=== PATIENT | female | born 1945 | race Caucasian/White ===

== ENCOUNTER → 2016-08-02 | Outpatient (REF) | payer MEDICARE ==
[2016-08-02 12:51] LABS: ALBUMIN 3.8 GM/DL (3.2-5.2); ALBUMIN/GLOBULIN RATIO 1.31 (1.00-1.93); ALKALINE PHOSPHATASE 71 U/L (45-117); ALT/SGPT 20 U/L (12-78); ANION GAP 5 MEQ/L (8-16); AST/SGOT 18 U/L (15-37); BILIRUBIN,TOTAL 0.5 MG/DL (0.2-1.0); BLOOD UREA NITROGEN 18 MG/DL (7-18); CALCIUM LEVEL 9.6 MG/DL (8.8-10.2); CARBON DIOXIDE LEVEL 28 MEQ/L (21-32); CHLORIDE LEVEL 105 MEQ/L (98-107); CHOLESTEROL LEVEL 204 MG/DL (<200); GLOMERULAR FILTRATION RATE > 60.0 (>39); GLUCOSE, FASTING 92 MG/DL (83-110); POTASSIUM SERUM 3.9 MEQ/L (3.5-5.1); SODIUM LEVEL 138 MEQ/L (136-145); TOTAL PROTEIN 6.7 GM/DL (6.4-8.2); TRIGLYCERIDES LEVEL 72 MG/DL (<150)
[2016-08-02 12:56] LABS: MEAN CORPUSCULAR HEMOGLOBIN 32.4 pg (27.0-33.0); MEAN CORPUSCULAR HGB CONC 32.5 g/dl (32.0-36.5); MEAN CORPUSCULAR VOLUME 99.7 fl (80.0-96.0); WHITE BLOOD COUNT 5.5 K/mm3 (4.0-10.0)
== END ==
LOC: M SFHCPLAZ 07:56
PROVIDERS: ATTEND Internal Medicine
DX: D69.6 Thrombocytopenia, unspecified (principal); I25.10 Atherosclerotic heart disease of native coronary artery without angina pectoris

== ENCOUNTER → 2017-08-07 | Outpatient (REF) | payer MEDICARE ==
[2017-08-07 10:45] LABS: HEMATOCRIT 40.5 % (36.0-47.0); MEAN CORPUSCULAR HEMOGLOBIN 31.1 pg (27.0-33.0); MEAN CORPUSCULAR HGB CONC 32.1 g/dl (32.0-36.5); MEAN CORPUSCULAR VOLUME 96.9 fl (80.0-96.0); RED BLOOD COUNT 4.18 10^6/uL (4.00-5.40); RED CELL DISTRIBUTION WIDTH 13.2 % (11.5-14.5); WHITE BLOOD COUNT 5.4 10^3/uL (4.0-10.0)
[2017-08-07 11:23] LABS: PLATELET COUNT, AUTOMATED 79 10^3/uL (150-450)
[2017-08-07 11:26] LABS: IMMATURE PLATELET FRACTION % 32.1 % (0.0-9.6)
[2017-08-07 11:36] LABS: ALBUMIN 3.7 GM/DL (3.2-5.2); ALBUMIN/GLOBULIN RATIO 1.19 (1.00-1.93); ALKALINE PHOSPHATASE 72 U/L (45-117); ALT/SGPT 19 U/L (12-78); ANION GAP 8 MEQ/L (8-16); AST/SGOT 20 U/L (7-37); BILIRUBIN,TOTAL 0.4 MG/DL (0.2-1.0); BLOOD UREA NITROGEN 18 MG/DL (7-18); CALCIUM LEVEL 9.1 MG/DL (8.8-10.2); CARBON DIOXIDE LEVEL 28 MEQ/L (21-32); CHLORIDE LEVEL 106 MEQ/L (98-107); CHOLESTEROL LEVEL 183 MG/DL (<200); CHOLESTEROL RISK RATIO 2.859 (<5); CREATININE FOR GFR 0.72 MG/DL (0.55-1.30); GLOMERULAR FILTRATION RATE > 60.0 (>39); GLUCOSE, FASTING 95 MG/DL (70-100); HDL CHOLESTEROL 64 MG/DL (>40); NON-HDL-C 119 MG/DL; SODIUM LEVEL 142 MEQ/L (136-145); TOTAL PROTEIN 6.8 GM/DL (6.4-8.2); TRIGLYCERIDES LEVEL 70 MG/DL (<150)
== END ==
LOC: M SFHCPLAZ 07:49
DX: Z00.00 Encounter for general adult medical examination without abnormal findings (principal); I25.10 Atherosclerotic heart disease of native coronary artery without angina pectoris; D69.6 Thrombocytopenia, unspecified; E78.00 Pure hypercholesterolemia, unspecified
CPT/HCPCS: 80053

== ENCOUNTER → 2018-09-11 | Outpatient (REF) | payer MEDICARE ==
[2018-09-11 12:13] LABS: HEMATOCRIT 39.2 % (36.0-47.0); HEMOGLOBIN 12.6 g/dl (12.0-15.5); MEAN CORPUSCULAR HEMOGLOBIN 31.4 pg (27.0-33.0); MEAN CORPUSCULAR HGB CONC 32.1 g/dl (32.0-36.5); MEAN CORPUSCULAR VOLUME 97.8 fl (80.0-96.0); RED BLOOD COUNT 4.01 10^6/uL (4.00-5.40); WHITE BLOOD COUNT 5.7 10^3/uL (4.0-10.0)
[2018-09-11 12:35] LABS: ALBUMIN 3.7 GM/DL (3.2-5.2); ALT/SGPT 17 U/L (12-78); BILIRUBIN,TOTAL 0.5 MG/DL (0.2-1.0); BLOOD UREA NITROGEN 18 MG/DL (7-18); CALCIUM LEVEL 9.6 MG/DL (8.8-10.2); CARBON DIOXIDE LEVEL 26 MEQ/L (21-32); CHLORIDE LEVEL 109 MEQ/L (98-107); CHOLESTEROL LEVEL 187 MG/DL (<200); CHOLESTEROL RISK RATIO 2.833 (<5); CREATININE FOR GFR 0.69 MG/DL (0.55-1.30); FOLATE 23.1 NG/ML; GLOMERULAR FILTRATION RATE > 60.0 (>39); GLUCOSE, FASTING 85 MG/DL (70-100); HDL CHOLESTEROL 66 MG/DL (>40); LDL CHOLESTEROL 108 MG/DL (<100); NON-HDL-C 121 MG/DL; SODIUM LEVEL 142 MEQ/L (136-145); TOTAL PROTEIN 6.6 GM/DL (6.4-8.2); TRIGLYCERIDES LEVEL 67 MG/DL (<150); VITAMIN B12 LEVEL 390 PG/ML
[2018-09-11 12:45] LABS: PLATELET COUNT, AUTOMATED 63 10^3/uL (150-450)
== END ==
LOC: M LABDRAWP 09:04
PROVIDERS: ATTEND Internal Medicine
DX: D69.6 Thrombocytopenia, unspecified (principal); I25.10 Atherosclerotic heart disease of native coronary artery without angina pectoris; E78.00 Pure hypercholesterolemia, unspecified

== ENCOUNTER → 2019-10-07 | Outpatient (REF) | payer MEDICARE ==
[~2019-10-07] MED LIST: CALC600T60 PO; COQ1200C3 PO; CRAN400C PO; IPRA0.00 NEB; LUTE2000 PO; REDCAP4 PO; TARTCAP PO; TRAM50TA2 PO; VITA250T4 PO; XARE10TA PO
[2019-11-24 21:57] LABS: BASO % 0.4 % (0.0-1.0); EOS % 0.3 % (0.0-3.0); HEMATOCRIT 41.4 % (36.0-47.0); HEMOGLOBIN 12.8 g/dl (12.0-15.5); LYMPH % 11.3 % (24.0-44.0); MEAN CORPUSCULAR HEMOGLOBIN 28.4 pg (27.0-33.0); MEAN CORPUSCULAR HGB CONC 30.9 g/dl (32.0-36.5); MEAN CORPUSCULAR VOLUME 91.8 fl (80.0-96.0); MONO # 0.7 10^3/uL (0.0-0.8); MONO % 7.7 % (0.0-5.0); NEUTROPHILS # 7.3 10^3/uL (1.5-8.5); PLATELET COUNT, AUTOMATED 182 10^3/uL (150-450); RED BLOOD COUNT 4.51 10^6/uL (4.00-5.40); WHITE BLOOD COUNT 9.1 10^3/uL (4.0-10.0)
[2019-12-01 03:47] LABS: ALBUMIN 3.4 GM/DL (3.2-5.2); ALT/SGPT 15 U/L (12-78); BILIRUBIN,TOTAL 0.5 MG/DL (0.2-1.0); BLOOD UREA NITROGEN 16 MG/DL (7-18); CALCIUM LEVEL 9.8 MG/DL (8.8-10.2); CARBON DIOXIDE LEVEL 25 MEQ/L (21-32); CHLORIDE LEVEL 106 MEQ/L (98-107); CHOLESTEROL LEVEL 181 MG/DL (<200); CHOLESTEROL RISK RATIO 3.067 (<5); CREATININE FOR GFR 0.86 MG/DL (0.55-1.30); FOLATE > 24.0 NG/ML; GLOMERULAR FILTRATION RATE > 60.0 (>39); GLUCOSE, FASTING 109 MG/DL (70-100); HDL CHOLESTEROL 59 MG/DL (>40); LDL CHOLESTEROL 105 MG/DL (<100); NON-HDL-C 122 MG/DL; POTASSIUM SERUM 4.3 MEQ/L (3.5-5.1); SODIUM LEVEL 138 MEQ/L (136-145); TRIGLYCERIDES LEVEL 85 MG/DL (<150); VITAMIN B12 LEVEL 582 PG/ML
== END ==
LOC: M SFHCPLAZ 11:48
PROVIDERS: ATTEND Internal Medicine
DX: E78.00 Pure hypercholesterolemia, unspecified (principal); D69.6 Thrombocytopenia, unspecified; I25.10 Atherosclerotic heart disease of native coronary artery without angina pectoris

== ENCOUNTER → 2019-10-22 | Outpatient (REF) | payer MEDICARE ==
[2019-10-22 16:45] LABS: APPEARANCE, URINE TURBID (CLEAR); BACTERIA, URINE AUTO NEGATIVE (NEGATIVE); BILIRUBIN, URINE AUTO NEGATIVE (NEGATIVE); BLOOD, URINE BLOOD 2+ (NEGATIVE); COLOR, URINE AMBER (YELLOW); GLUCOSE, URINE (UA) AUTO NEGATIVE (NEGATIVE); KETONE, URINE AUTO TRACE mg/dL (NEGATIVE); LEUKOCYTE ESTERASE, URINE AUTO 2+ (NEGATIVE); NITRITE, URINE AUTO NEGATIVE (NEGATIVE); PROTEIN, URINE AUTO 2+ mg/dL (NEGATIVE); RBC, URINE AUTO TNTC /HPF (0-3); SPECIFIC GRAVITY URINE AUTO 1.016 (1.002-1.035); SQUAMOUS EPITHELIAL CELL UR AU 2 /HPF (0-6); UROBILINOGEN, URINE AUTO 0.2 mg/dL (0.0-2.0); WBC, URINE AUTO TNTC /HPF (0-3)
== END ==
LOC: M LAB REF 09:10
PROVIDERS: ATTEND Internal Medicine
DX: R30.0 Dysuria (principal)
CPT/HCPCS: 81001; 87088; 87186; 94760; G0463

== ENCOUNTER 2019-12-05 11:23 | Inpatient (IN) | payer MEDICARE ==
--- NOTE | 2019-12-05 12:02 | REPVR ---
PROCEDURE INFORMATION: Exam: CT Cervical Spine Without Contrast Exam date and time: 12/05/2019 11:47 AM Age: 74 years old Clinical indication: Injury or trauma; Fall; Blunt trauma TECHNIQUE: Imaging protocol: Computed tomography images of the cervical spine without contrast. Radiation optimization: All CT scans at this facility use at least one of these dose optimization techniques: automated exposure control; mA and/or kV adjustment per patient size (includes targeted exams where dose is matched to clinical indication); or iterative reconstruction. COMPARISON: No relevant prior studies available. FINDINGS: Vertebrae: No acute fracture. Slight retrolisthesis at C3-C4. Exaggerated lordosis. Discs/Spinal canal/Neural foramina: Minimal disc osteophyte complexes without evidence of significant spinal stenosis. There are facet and uncinate osteophytes with moderate right C3-C4 and bilateral C5-C6 neural foraminal narrowing. Soft tissues: Unremarkable. Lungs: Lungs show scarring and prominent bullous changes. No apical pneumothorax. Vasculature: There is calcification at carotid bifurcations. IMPRESSION: No acute fracture. Other findings as described. Electronically signed by: Terri Vasquez On 12/05/2019 12:02:39 PM
--- NOTE | 2019-12-05 12:04 | REPVR ---
PROCEDURE INFORMATION: Exam: CT Head Without Contrast Exam date and time: 12/05/2019 11:47 AM Age: 74 years old Clinical indication: Injury or trauma; Fall; Blunt trauma (contusions or hematomas) TECHNIQUE: Imaging protocol: Computed tomography of the head without contrast. Radiation optimization: All CT scans at this facility use at least one of these dose optimization techniques: automated exposure control; mA and/or kV adjustment per patient size (includes targeted exams where dose is matched to clinical indication); or iterative reconstruction. COMPARISON: No relevant prior studies available. FINDINGS: Brain: There is no acute intracranial hemorrhage. There is mild lucency in the cerebral white matter, likely microvascular disease although non-specific. Gutiérrez white differentiation is intact. There are no extra-axial fluid collections. No evidence of mass. There is no mass effect or midline shift. Cerebral ventricles: The ventricles and sulci are enlarged, consistent with age related volume loss / atrophy. No hydrocephalus. Bones/joints: No acute fracture. Paranasal sinuses: Visualized sinuses are unremarkable. No fluid levels. Mastoid air cells: No significant mastoid effusion. Vasculature: There is vascular calcification. Soft tissues: Unremarkable as visualized. IMPRESSION: 1. No evidence of acute intracranial abnormality. No evidence of acute infarction, hemorrhage, or mass. 2. Age related atrophy and microvascular disease. Electronically signed by: Terri Vasquez On 12/05/2019 12:04:54 PM
--- NOTE | 2019-12-05 12:43 | REPVR ---
PROCEDURE INFORMATION: Exam: XR Right Hip with Pelvis when Performed Exam date and time: 12/05/2019 12:18 PM Age: 74 years old Clinical indication: Hip pain; Right hip; Additional info: Trauma TECHNIQUE: Imaging protocol: XR Right hip with pelvis when performed. Views: 2 or 3 views. COMPARISON: No relevant prior studies available. FINDINGS: Bones/joints: There is 3 part proximal right femur fracture at base of femoral neck . There is superior displacement of distal fracture fragment. There is varus angulation. There is fracture of the lesser trochanter with medial displacement. There are prominent degenerative changes in right hip. There are mild degenerative changes in left hip. There are degenerative changes in visualized lower spine. Bones are demineralized. Soft tissues: Unremarkable. Vasculature: There is aortic and iliac calcification. IMPRESSION: Right proximal femur fracture as described. Electronically signed by: Terri Vasquez On 12/05/2019 12:43:00 PM
[2019-12-05] MEDS ORDERED: BOOSTRIX/ADACEL VACCINE (DIPHTH/PERTUSS/ACELL/TETANUS) 0.5ML SYR IM ONE (13:00)
[2019-12-05 13:13] LABS: BASO % 0.1 % (0.0-1.0); HEMATOCRIT 32.7 % (36.0-47.0); HEMOGLOBIN 10.1 g/dl (12.0-15.5); LYMPH % 6.4 % (24.0-44.0); MEAN CORPUSCULAR HEMOGLOBIN 27.4 pg (27.0-33.0); MEAN CORPUSCULAR HGB CONC 30.9 g/dl (32.0-36.5); MEAN CORPUSCULAR VOLUME 88.9 fl (80.0-96.0); MONO # 0.8 10^3/uL (0.0-0.8); NEUTROPHILS # 13.2 10^3/uL (1.5-8.5); NEUTROPHILS % 87.7 % (36.0-66.0); PLATELET COUNT, AUTOMATED 202 10^3/uL (150-450); RED BLOOD COUNT 3.68 10^6/uL (4.00-5.40)
--- NOTE | 2019-12-05 13:17 | REPVR ---
PROCEDURE INFORMATION: Exam: XR Chest, 1 View Exam date and time: 12/05/2019 1:11 PM Age: 74 years old Clinical indication: Pre-operative exam; Respiratory screening exam; Additional info: Perop TECHNIQUE: Imaging protocol: XR of the chest Views: 1 view. COMPARISON: No relevant prior studies available. FINDINGS: Lungs: Lungs are lucent and significant bolus change was noted in upper chest on cervical spine CT. Right lung appears hyperexpanded. Left lung appears smaller and shows interstitial coarsening suspected to be fibrotic change. No well-defined consolidation. Pleural space: No significant visible pleural effusion. No pneumothorax. Heart/Mediastinum: No significant cardiomegaly. Vasculature: The aorta is calcified and unfolded. Aorta is calcified and unfolded. Bones/joints: Degenerative changes are present in the spine. Soft tissues: Density lower chest could be hiatal hernia. IMPRESSION: Chronic lung changes as described. Electronically signed by: Terri Vasquez On 12/05/2019 13:17:08 PM
[2019-12-05 13:41] LABS: ALBUMIN 2.7 GM/DL (3.2-5.2); ALT/SGPT 75 U/L (12-78); BILIRUBIN,TOTAL 0.7 MG/DL (0.2-1.0); BLOOD UREA NITROGEN 40 MG/DL (7-18); CALCIUM LEVEL 9.7 MG/DL (8.8-10.2); CARBON DIOXIDE LEVEL 27 MEQ/L (21-32); CHLORIDE LEVEL 109 MEQ/L (98-107); CK-MB VALUE MASS 16.1 NG/ML (<3.6); CPK CREATINE PHOSPHOKINASE 885 U/L (26-192); CREATININE FOR GFR 0.66 MG/DL (0.55-1.30); GLOMERULAR FILTRATION RATE > 60.0 (>39); GLUCOSE, FASTING 99 MG/DL (70-100); MB/CK RELATIVE INDEX 1.82 (< OR =4); POTASSIUM SERUM 4.2 MEQ/L (3.5-5.1); SODIUM LEVEL 144 MEQ/L (136-145); TOTAL PROTEIN 6.2 GM/DL (6.4-8.2); TROPONIN I 0.03 NG/ML (< 0.10)
[2019-12-05 14:45] LABS: INR 1.09; PROTHROMBIN TIME 14.3 SECONDS (12.5-14.3)
[2019-12-05] MEDS ORDERED: ONDANSETRON 4MG/2ML VIAL IV ONE (14:45)
[2019-12-05] MEDS ORDERED: CRAN400C PO (14:49)
[2019-12-05] MEDS ORDERED: CALC600T60 PO (14:49)
[2019-12-05] MEDS ORDERED: LUTE2000 PO (14:49)
[2019-12-05] MEDS ORDERED: REDCAP4 PO (14:49)
[2019-12-05] MEDS ORDERED: TARTCAP PO (14:49)
[2019-12-05] MEDS ORDERED: COQ1200C3 PO (14:49)
[2019-12-05] MEDS ORDERED: VITA250T4 PO (14:49)
[2019-12-05] MEDS: NS 1,000 ML IV SCH ×2 (15:02→22:11)
[2019-12-05] MEDS: MORPHINE 2 MG/ML 1ML VIAL (J2270) IV PRN ×2 (15:02→15:58)
[2019-12-05] MEDS ORDERED: ONDANSETRON 4MG/2ML VIAL IV PRN ×3 (15:15→23:15)
[2019-12-05] MEDS ORDERED: MORPHINE 2 MG/ML 1ML VIAL (J2270) IV PRN (15:15)
[2019-12-05] MEDS ORDERED: MOM 30ML SUSPENSION UDC PO PRN (15:15)
--- NOTE | 2019-12-05 15:45 | REPVR ---
PROCEDURE INFORMATION: Exam: XR Right Femur Exam date and time: 12/05/2019 2:36 PM Age: 74 years old Clinical indication: Pain; Hip; Right; Additional info: Full length exam for surgery planning TECHNIQUE: Imaging protocol: XR Right femur. Views: 2 views. COMPARISON: No relevant prior studies available. FINDINGS: Bones/joints: There is bony demineralization. There is no additional fracture of mid to lower femur. There are mild degenerative changes at the knee. Soft tissues: There appears to be anterior suprapatellar soft tissue swelling. There is arterial vascular calcification. IMPRESSION: Patient with known proximal femur fracture shows no additional fracture of remainder femur. Electronically signed by: Terir Vasquez On 12/05/2019 15:45:39 PM
[2019-12-05] MEDS ORDERED: IPRATROPIUM 0.5MG/ALBUTEROL 2.5MG INH SOL UD 3ML (DUONEB) NEB PRN (16:15)
--- NOTE | 2019-12-05 16:30 | HPEPDOC ---
General Date of Admission 12/05/19 Date of Service: Dec 05, 2019 Chief Complaint The patient is a 74-year-old female admitted with a reason for visit of FALL. Source: Patient, Family, RN/MD History of Present Illness 74 year old female lives alone, hard of hearing PMH of COPD, CAD s/p stenting, hypercholesterolemia with h/o falls as per daughter present in the room supposed to use a walker but does not always use it was found down on the floor this morning so was brought to the ED. As per dale she knows that she fell 1 month ago and also 1 week ago when she was able to get up by herself. Patient does not always remember about falling and so does not tell family about her falls. She complains of severe sharp pain at the right hip 8/10 in intensity associated to severe muscle spasms on slight movement. Pateitn also complains of weakness of both her upper extremities specially of the left hand. She was found to have right proximal femur fracture. Home Medications Scheduled Ascorbic Acid (Vitamin C) 250 Mg Tablet, 250 MG PO DAILY, (Reported) Calcium Carbonate (Calcium) 600 Mg Tablet, 600 MG PO DAILY, (Reported) Ipratropium/Albuterol Sulfate (Iprat-Albut 0.5-3(2.5) mg/3 ml) 3 Ml Ampul.neb, 3 ML NEB RTID Lutein (Lutein) 20 Mg Capsule, 20 MG PO DAILY, (Reported) Rivaroxaban (Xarelto) 10 Mg Tablet, 10 MG PO DAILY Scheduled PRN Tramadol HCl (Tramadol HCl) 50 Mg Tablet, 1 TAB PO Q4H PRN for PAIN Allergies Coded Allergies: No Known Allergies (Verified , 01/27/07) Past Medical History Medical History CAD H/O THROMBOCYTOPENIA HYPERCHOLESTEROLEMIA CHRONIC OBSTRUCTIVE PULMONARY DISEASE, UNSPECIFIED COPD TYPE ONYCHOMYCOSIS CIGARETTE NICOTINE DEPENDENCE IN REMISSION Surgical History LIPOMA REMOVED LEFT SHOULDER TEENAGER JAY/BSO FOR PROLAPSE 1998 CAD STENT Family History FATHER OF LUNG DISEASE AGE 60'S. MOTHER AGE 73 OF LEUKEMIA. FIVE BROTHERS_ _THREE DIED_ _ONE OF CAD AND ONE OF PANCREATIC CANCER, ANOTHER OF UNKNOWN DISEASE Social History * Smoker: former Smoker Alcohol: Denies Drugs: denies A-FIB/CHADSVASC A-FIB History Current/History of A-Fib/PAF?: No Review of Systems Constitutional: Denies: Chills, Fever, Night Sweats Eyes: Denies: Pain, Vision change ENT: Denies: Head Aches, Ear Pain, Dysphagia Skin: Reports: Bruising, Breakdown Pulmonary: Reports: Dyspnea; Denies: Cough Cardiovascular: Denies: Chest Pain, Palpitations, Orthopnea, Paroxysmal Noc. Dyspnea Gastrointestinal: Denies: Nausea, Vomiting, Abdominal Pain, Diarrhea Genitourinary: Reports: Incontinence Musculoskeletal: Reports: Shoulder Pain, Joint Pain, Spasms Neurological: Reports: Weakness (both upper extremities) Physical Examination General Exam: Positive: Alert, Cooperative, Mild Distress Eye Exam: Positive: PERRLA, Conjunctiva & lids normal, EOMI; Negative: Sclera icteric ENT Exam: Positive: Atraumatic, Mucous membr. moist/pink, Pharynx Normal, Other ENT (bitemporal wasting) Neck Exam: Positive: Supple; Negative: JVD, thyromegaly Chest Exam: Positive: Clear to auscultation, Diminished, Other (barel chest, pursed lip breathing); Negative: Rales, Rhonchi, Wheezing Heart Exam: Positive: Rate Normal, Regular Rhythm, Normal S1, Normal S2; Negative: Murmurs, Rubs Telemetry: Positive: No significant arrhythmia Abdomen Exam: Positive: Normal bowel sounds, Soft; Negative: Tenderness, Hepatospenomegaly Extremity Exam: Positive: Other (wasting of small muscles of hands); Negative: Clubbing, Cyanosis, Edema Skin Exam: Positive: Breakdown (2 cm x 2 cm ulcer on left lateral maleolus, 6 cm x 4 cm ulcer with slough on the left hip, 5 cm x 5 cm skin ulcer with slough onthe left flank.), Other skin issue (brruising ont he right inner thingh, bruising at trevor sacrum, bruising with superficial ulcer on the left shoulder. ) Neuro Exam: Positive: Normal Speech Psych Exam: Positive: Oriented x 3 Vital Signs Vital Signs Label Value Date Time Patient Temperature 96.8 degrees F 12/05/191651 Pulse 115 12/05/191651 Respiratory Rate 20 bpm 12/05/191651 Blood Pressure Assessment 107/75 (86) 12/05/19 165 Bedside Pulse Oximetry 90 % 12/05/191651 Item Value Date Time Oxygen Delivery Method Room Air 12/05/19 165 Laboratory Data Labs 24H Laboratory Tests 2 12/05/19 12:57: Immature Granulocyte % (Auto) 0.8, Neutrophils (%) (Auto) 87.7H, Lymphocytes (%) (Auto) 6.4L, Monocytes (%) (Auto) 5.0, Eosinophils (%) (Auto) 0.0, Basophils (%) (Auto) 0.1, Neutrophils # (Auto) 13.2H, Lymphocytes # (Auto) 1.0L, Monocytes # (Auto) 0.8, Eosinophils # (Auto) 0.0, Basophils # (Auto) 0.0, Nucleated Red Blood Cells % (auto) 0.0, Anion Gap 8, Glomerular Filtration Rate > 60.0, Calcium Level 9.7, Total Bilirubin 0.7, Aspartate Amino Transf (AST/SGOT) 124H, Alanine Aminotransferase (ALT/SGPT) 75, Alkaline Phosphatase 81, Total Creatine Kinase 885H, Creatine Kinase MB 16.1H, Creatine Kinase MB Relative Index 1.82, Troponin I 0.03, Total Protein 6.2L, Albumin 2.7L, Albumin/Globulin Ratio 0.8L CBC/BMP Laboratory Tests 12/05/19 12:57 Assessment/Plan 74 year old female lives alone, hard of hearing PMH of COPD, CAD s/p stenting, hypercholesterolemia with h/o falls as per daughter present in the room supposed to use a walker but does not always use it was found down on the floor this morning so was brought to the ED. As per daughter she knows that she fell 1 month ago and also 1 week ago when she was able to get up by herself. Patient does not always remember about falling and so does not tell family about her falls. She complains of severe sharp pain at the right hip 8/10 in intensity associated to severe muscle spasms on slight movement. She was found to have right proximal femur fracture. Right proximal femoral fracture in 3 parts EKG reviewed no acute ischemic changes, No h/o CHF/ or cva or ckd or dm or tia. Does have h/o CAD with stents no no active ischemia at present. Medically optimized for surgery NPO, bedrest pain control with morphine. post op pain control and dvt prophylaxis as per orthopedics. Rhabdomyolysis due to mechanica fall IVF. COPD not on any treatment at home duonebs prn sob CAD s/p Stents not on any meds Protein calorie malnutrition albumin 2.7 I expect it will be lower with adequete hydration. dietary consult ensure enlive Ulcers on the left hip and left flank/ left maleoli lat, left shoulde from earlier fall will slough surgical consult. Plan / VTE VTE Prophylaxis Ordered?: Yes RICO DUARTE MD Dec 05, 2019 14:29
[2019-12-05] MEDS ORDERED: KETAMINE HCL 200 MG/20 ML VIAL As Ordered ONE (16:49)
[2019-12-05] MEDS ORDERED: MIDAZOLAM INJ 2MG/2ML VIAL (J2250 PER 1MG) As Ordered ONE (16:49)
[2019-12-05] MEDS ORDERED: ceFAZolin 2 GM/D5W 50 ML IV BAG (J0690 PER 500MG) As Ordered ONE (18:19)
[2019-12-05] MEDS ORDERED: TRANEXAMIC ACID 100 MG/ML 10ML VIAL As Ordered ONE (18:24)
[2019-12-05] MEDS ORDERED: propofoL 200 MG/20 ML VIAL As Ordered ONE (18:48)
[2019-12-05] MEDS ORDERED: CALCIUM CHLORIDE 10% 1 GM/10 ML SYR As Ordered ONE (18:48)
[2019-12-05] MEDS ORDERED: PHENYLephrine HCL 500 MCG/5 ML (100MCG/ML) SYRINGE (J2370) As Ordered ONE ×2 (18:48→18:49)
[2019-12-05] MEDS ORDERED: fentaNYL 100 MCG/2 ML INJECTION (J3010) As Ordered ONE (20:01)
[2019-12-05] MEDS ORDERED: ONDANSETRON 4MG/2ML VIAL As Ordered ONE (20:02)
[2019-12-05 21:00] VITALS: BP 102/64
[2019-12-05 21:30] VITALS: BP 102/56
[2019-12-05 22:00] VITALS: BP 96/67
[2019-12-05] MEDS: DOCUSATE SODIUM 100 MG CAP PO SCH (22:11)
[2019-12-05 23:00] VITALS: BP 103/68
[2019-12-05] MEDS ORDERED: fentaNYL 100 MCG/2 ML INJECTION (J3010) IV PRN (23:15)
[2019-12-05] MEDS ORDERED: LR 1,000 ML IV SCH (23:15)
[2019-12-05] MEDS ORDERED: HYDROMORPHONE HCL 0.5 MG/ 0.5 ML SYRINGE (J1170 PER 1) IV PRN (23:15)
[2019-12-05] MEDS: LR 1,000 ML IV SCH (23:15)
[2019-12-05] MEDS ORDERED: oxyCODONE 5MG TAB PO PRN (23:15)
[2019-12-06] VITALS (11 sets, daily range): BP systolic 88–101; BP diastolic 53–65
[2019-12-06] MEDS: ceFAZolin SOD 2 GM in IV 1 EA IV SCH ×2 (02:25→10:36)
[2019-12-06 07:33] LABS: BASO % 0.1 % (0.0-1.0); EOS % 0.2 % (0.0-3.0); LYMPH # 0.8 10^3/uL (1.5-5.0); LYMPH % 8.3 % (24.0-44.0); MEAN CORPUSCULAR HEMOGLOBIN 27.5 pg (27.0-33.0); MEAN CORPUSCULAR HGB CONC 30.4 g/dl (32.0-36.5); MEAN CORPUSCULAR VOLUME 90.6 fl (80.0-96.0); MONO # 0.7 10^3/uL (0.0-0.8); NEUTROPHILS # 8.4 10^3/uL (1.5-8.5); NEUTROPHILS % 83.8 % (36.0-66.0); PLATELET COUNT, AUTOMATED 149 10^3/uL (150-450); RED BLOOD COUNT 2.65 10^6/uL (4.00-5.40); WHITE BLOOD COUNT 10.1 10^3/uL (4.0-10.0)
[2019-12-06 07:38] LABS: HEMOGLOBIN 7.3 g/dl (12.0-15.5)
[2019-12-06] MEDS: MORPHINE 2 MG/ML 1ML VIAL (J2270) IV PRN ×2 (07:43→15:24)
[2019-12-06] MEDS: LR 1,000 ML IV SCH (07:45)
--- NOTE | 2019-12-06 07:51 | ECGEPIP ---
[facility] - ED Test Date: 2019-12-05 Pat Name: LUIS ALBERTO LEON Department: Room: - Gender: Female Combiner Operator: GILMA : 1945 Requested By: Maia Young Order Number: [id number] Reading MD: Bennett Castro Measurements Intervals [place] Rate: 116 P: 77 CT: 123 QRS: -34 QRSD: 100 T: -44 QT: 341 QTc: 475 Interpretive Statements SINUS TACHYCARDIA WITH OCCASIONAL VENTRICULAR PREMATURE COMPLEXES Extensive Baseline artifact Comparison tracing not on file Electronically Signed on 12-06-2019 7:51:21 EDT by Bennett Castro
[2019-12-06 07:56] LABS: ALBUMIN 2.2 GM/DL (3.2-5.2); ALT/SGPT 59 U/L (12-78); BILIRUBIN,DIRECT 0.2 MG/DL (0.0-0.2); BILIRUBIN,TOTAL 0.6 MG/DL (0.2-1.0); BLOOD UREA NITROGEN 37 MG/DL (7-18); CALCIUM LEVEL 8.7 MG/DL (8.8-10.2); CARBON DIOXIDE LEVEL 24 MEQ/L (21-32); CHLORIDE LEVEL 108 MEQ/L (98-107); CREATININE FOR GFR 0.71 MG/DL (0.55-1.30); GLOMERULAR FILTRATION RATE > 60.0 (>39); GLUCOSE, FASTING 84 MG/DL (70-100); SODIUM LEVEL 139 MEQ/L (136-145); TOTAL PROTEIN 5.1 GM/DL (6.4-8.2)
--- NOTE | 2019-12-06 09:31 | REP ---
INDICATION: FLUORO GUIDANCE COMPARISON: Hip x-ray dated 12/05/2019 TECHNIQUE: Intraoperative fluoroscopic imaging using portable C-arm technique. FINDINGS: Multiple intraoperative images demonstrate the patient to be status post open reduction and fixation with intramedullary kristofer through the femur and compression screw through the proximal femoral head/neck with satisfactory fracture fixation and reduction. Overlying postoperative changes noted. Total fluoroscopic time 2 minutes 55 seconds. IMPRESSION: Status post open reduction and fixation for comminuted inter trochanteric/femoral neck fracture. <Electronically signed by Mansoor Cabrera > 12/06/19 0928
[2019-12-06] MEDS: DOCUSATE SODIUM 100 MG CAP PO SCH ×2 (10:36→21:24)
[2019-12-06] MEDS: PERCOCET 5MG/325MG TAB PO PRN ×2 (10:36→18:28)
[2019-12-06] MEDS: MIRALAX *UNIT DOSE* 17GM PACKET PO SCH (10:36)
--- NOTE | 2019-12-06 11:49 | IPNPDOC ---
Text Note Date of Service The patient was seen on 12/06/19. NOTE Subjective: appropriate pain at the surgical site. Pain also inteh right inner thigh. No fever or chills, no chest pain or SOb, no nausea or vomiting or diarrhea. Physical Exam: Vitals See below. General Exam: Positive: Alert, Cooperative, Mild Distress Eye Exam: Positive: PERRLA, Conjunctiva & lids normal, EOMI; Negative: Sclera icteric ENT Exam: Positive: Atraumatic, Mucous membr. moist/pink, Pharynx Normal, Other ENT (bitemporal wasting) Neck Exam: Positive: Supple; Negative: JVD, thyromegaly Chest Exam: Positive: Clear to auscultation, Diminished, Other (barel chest, pursed lip breathing); Negative: Rales, Rhonchi, Wheezing Heart Exam: Positive: Rate Normal, Regular Rhythm, Normal S1, Normal S2; Negative: Murmurs, Rubs Telemetry: Positive: No significant arrhythmia Abdomen Exam: Positive: Normal bowel sounds, Soft; Negative: Tenderness, Hepatospenomegaly Extremity Exam: Positive: Other (wasting of small muscles of hands); Negative: Clubbing, Cyanosis, Edema Skin Exam: Positive: Breakdown (2 cm x 2 cm ulcer on left lateral maleolus, 6 cm x 4 cm ulcer with slough on the left hip, 5 cm x 5 cm skin ulcer with slough onthe left flank.), Other skin issue (brruising ont he right inner thingh, bruising at trevor sacrum, bruising with superficial ulcer on the left shoulder. ) Neuro Exam: Positive: Normal Speech Psych Exam: Positive: Oriented x 3 Labs and radiology: reviewed Assessment and plan: 74 year old female lives alone, hard of hearing PMH of COPD, CAD s/p stenting, hypercholesterolemia with h/o falls as per daughter pres ent in the room supposed to use a walker but does not always use it was found down on the floor this morning so was brought to the ED. As per daughter she knows that she fell 1 month ago and also 1 week ago when she was able to get up by herself. Patient does not always remember about falling and so does not tell family about her falls. She complains of severe sharp pain at the right hip 8/10 in intensity associated to severe muscle spasms on slight movement. She was found to have right proximal femur fracture. Right proximal femoral fracture in 3 parts s/p ORIF on 12/05/19 PT/OT pain control and dvt prophylaxis as per ortho Rhabdomyolysis due to mechanical fall resolving Acute Blood loss Anemia blood loss in fracture hematoma, large bruising in the right thigh. possibly also a combination of dilutional and some operative blood loss will check iron studies, vit B12, folate transfuse 1 unit COPD not on any treatment at home duonebs prn sob CAD s/p Stents not on any meds Protein calorie malnutrition albumin 2.2 dietary consult ensure enlive Pressure Ulcers with deep tissue injury on the left hip and left flank/ Pressure left maleolus lat, left shoulder from earlier fall , probably lay down on her left side for a long while before she was able to get up. looks dry and healing at present. Will keep open surgical evaluation appreciated. VS,Fishbone, I+O VS, Fishbone, I+O Laboratory Tests 12/05/19 12:57 12/06/19 07:02 Vital Signs Date Time Temp Pulse Resp B/P (MAP) Pulse Ox O2 Delivery O2 Flow Rate FiO2 12/06/19 10:36 18 Room Air 12/06/19 07:43 2.0 12/06/19 06:00 98.4 92 94/62 (73) 98 l I&O- Last 24 Hours up to 6 AM 12/06/19 06:00 Intake Total 4355 ml Output Total 750 ml Balance 3605 ml RICO DUARTE MD Dec 06, 2019 11:49
[2019-12-06] MEDS: RIVAROXABAN 10 MG TAB (XARELTO) PO SCH (18:28)
[2019-12-07] MEDS: MORPHINE 2 MG/ML 1ML VIAL (J2270) IV PRN ×2 (00:45→06:37)
[2019-12-07 02:00] VITALS: BP 101/67
[2019-12-07] MEDS: PERCOCET 5MG/325MG TAB PO PRN ×3 (03:16→17:22)
[2019-12-07 06:00] VITALS: BP 109/56
[2019-12-07 07:23] LABS: BASO % 0.2 % (0.0-1.0); EOS # 0.1 10^3/uL (0.0-0.5); EOS % 1.1 % (0.0-3.0); HEMATOCRIT 27.3 % (36.0-47.0); HEMOGLOBIN 8.7 g/dl (12.0-15.5); LYMPH # 1.1 10^3/uL (1.5-5.0); LYMPH % 12.3 % (24.0-44.0); MEAN CORPUSCULAR HEMOGLOBIN 28.2 pg (27.0-33.0); MEAN CORPUSCULAR HGB CONC 31.9 g/dl (32.0-36.5); MEAN CORPUSCULAR VOLUME 88.3 fl (80.0-96.0); MONO # 0.8 10^3/uL (0.0-0.8); MONO % 8.9 % (0.0-5.0); NEUTROPHILS # 6.8 10^3/uL (1.5-8.5); NEUTROPHILS % 76.6 % (36.0-66.0); PLATELET COUNT, AUTOMATED 128 10^3/uL (150-450); RED BLOOD COUNT 3.09 10^6/uL (4.00-5.40); WHITE BLOOD COUNT 8.9 10^3/uL (4.0-10.0)
[2019-12-07 07:45] LABS: BLOOD UREA NITROGEN 26 MG/DL (7-18); CALCIUM LEVEL 8.5 MG/DL (8.8-10.2); CARBON DIOXIDE LEVEL 25 MEQ/L (21-32); CHLORIDE LEVEL 105 MEQ/L (98-107); CREATININE FOR GFR 0.55 MG/DL (0.55-1.30); FERRITIN 568 NG/ML (8-252); GLOMERULAR FILTRATION RATE > 60.0 (>39); GLUCOSE, FASTING 93 MG/DL (70-100); IRON (FE) 25 UG/DL (50-170); PERCENT SATURATION 15.5 % (13.2-45.0); POTASSIUM SERUM 4.2 MEQ/L (3.5-5.1); SODIUM LEVEL 135 MEQ/L (136-145); TOTAL IRON BINDING CAPACITY 161 UG/DL (250-450)
[2019-12-07] MEDS: MIRALAX *UNIT DOSE* 17GM PACKET PO SCH (09:29)
[2019-12-07] MEDS: DOCUSATE SODIUM 100 MG CAP PO SCH ×2 (09:29→21:23)
--- NOTE | 2019-12-07 11:41 | IPNPDOC ---
Text Note Date of Service The patient was seen on 12/07/19. NOTE Subjective: right hip and right thigh pain, no other complains. Was not able to do much with PT. Physical Exam: Vitals See below. General Exam: Positive: Alert, Cooperative, Mild Distress Eye Exam: Positive: PERRLA, Conjunctiva & lids normal, EOMI; Negative: Sclera icteric ENT Exam: Positive: Atraumatic, Mucous membr. moist/pink, Pharynx Normal, Other ENT (bitemporal wasting) Neck Exam: Positive: Supple; Negative: JVD, thyromegaly Chest Exam: Positive: Clear to auscultation, Diminished, Other (barel chest, pursed lip breathing); Negative: Rales, Rhonchi, Wheezing Heart Exam: Positive: Rate Normal, Regular Rhythm, Normal S1, Normal S2; Negative: Murmurs, Rubs Telemetry: Positive: No significant arrhythmia Abdomen Exam: Positive: Normal bowel sounds, Soft; Negative: Tenderness, Hepatospenomegaly Extremity Exam: Positive: Other (wasting of small muscles of hands); Negative: Clubbing, Cyanosis, Edema Skin Exam: Positive: Breakdown (2 cm x 2 cm ulcer on left lateral maleolus, 6 cm x 4 cm ulcer with slough on the left hip, 5 cm x 5 cm skin ulcer with slough onthe left flank.), Other skin issue (brruising ont he right inner thingh, bruising at trevor sacrum, bruising with superficial ulcer on the left shoulder. ) Neuro Exam: Positive: Normal Speech Psych Exam: Positive: Oriented x 3 Labs and radiology: Reviewed Assessment and Plan: 74 year old female lives alone, hard of hearing PMH of COPD, CAD s/p stenting, hypercholesterolemia with h/o falls as per daughter present in the room supposed to use a walker but does not always use it was found down on the floor this morning so was brought to the ED. As per daughter she knows that she fell 1 month ago and also 1 week ago when she was able to get up by herself. Patient does not always remember about falling and so does not tell family about her falls. She complains of severe sharp pain at the right hip 8/10 in intensity associated to severe muscle spasms on slight movement. She was found to have right proximal femur fracture. Right proximal femoral fracture in 3 parts s/p ORIF on 12/05/19 PT/OT pain control and dvt prophylaxis as per ortho Rhabdomyolysis due to mechanical fall resolving Acute Blood loss Anemia blood loss in fracture hematoma, large bruising in the right thigh. possibly also a combination of dilutional and some operative blood loss will check vit B12, folate No iron def. transfused 1 unit COPD not on any treatment at home duonebs prn sob CAD s/p Stents not on any meds Protein calorie malnutrition albumin 2.2 dietary consult ensure enlive Pressure Ulcers with deep tissue injury on the left hip and left flank/ Pressure left maleolus lat, left shoulder from earlier fall , probably lay down on her left side for a long while before she was able to get up. looks dry and healing at present. Will keep open surgical evaluation appreciated. VS,Zeuse, I+O VS, Jaidenbone, I+O Laboratory Tests 12/07/19 06:51 Vital Signs Date Time Temp Pulse Resp B/P (MAP) Pulse Ox O2 Delivery O2 Flow Rate FiO2 12/07/19 10:01 18 12/07/19 06:00 98.9 86 109/56 (73) 99 Nasal Cannula 2.0 I&O- Last 24 Hours up to 6 AM 12/07/19 06:00 Intake Total 1750 ml Output Total 1900 ml Balance -150 ml RICO DUARTE MD Dec 07, 2019 11:41
[2019-12-07 14:00] VITALS: BP 119/76
[2019-12-07] MEDS: IPRATROPIUM 0.5MG/ALBUTEROL 2.5MG INH SOL UD 3ML (DUONEB) NEB SCH ×2 (14:40→19:26)
[2019-12-07] MEDS: RIVAROXABAN 10 MG TAB (XARELTO) PO SCH (17:21)
[2019-12-07] MEDS: ACETAMINOPHEN TAB 650MG DOSE (2X325MG) PO PRN (21:23)
[2019-12-07 22:00] VITALS: BP 92/53
[2019-12-08] MEDS: PERCOCET 5MG/325MG TAB PO PRN (01:15)
[2019-12-08 05:54] LABS: BASO % 0.1 % (0.0-1.0); EOS # 0.1 10^3/uL (0.0-0.5); EOS % 1.8 % (0.0-3.0); HEMOGLOBIN 8.1 g/dl (12.0-15.5); LYMPH % 13.5 % (24.0-44.0); MEAN CORPUSCULAR HEMOGLOBIN 27.8 pg (27.0-33.0); MEAN CORPUSCULAR HGB CONC 31.2 g/dl (32.0-36.5); MEAN CORPUSCULAR VOLUME 89.3 fl (80.0-96.0); MONO # 0.6 10^3/uL (0.0-0.8); MONO % 8.3 % (0.0-5.0); NEUTROPHILS # 5.3 10^3/uL (1.5-8.5); NEUTROPHILS % 74.9 % (36.0-66.0); PLATELET COUNT, AUTOMATED 110 10^3/uL (150-450); RED BLOOD COUNT 2.91 10^6/uL (4.00-5.40); WHITE BLOOD COUNT 7.1 10^3/uL (4.0-10.0)
[2019-12-08 06:00] VITALS: BP 93/54
[2019-12-08] MEDS: ACETAMINOPHEN TAB 650MG DOSE (2X325MG) PO PRN (06:17)
[2019-12-08 06:22] LABS: BLOOD UREA NITROGEN 18 MG/DL (7-18); CALCIUM LEVEL 8.6 MG/DL (8.8-10.2); CARBON DIOXIDE LEVEL 27 MEQ/L (21-32); CHLORIDE LEVEL 106 MEQ/L (98-107); CREATININE FOR GFR 0.43 MG/DL (0.55-1.30); GLOMERULAR FILTRATION RATE > 60.0 (>39); GLUCOSE, FASTING 87 MG/DL (70-100); POTASSIUM SERUM 4.3 MEQ/L (3.5-5.1); SODIUM LEVEL 136 MEQ/L (136-145)
[2019-12-08] MEDS: IPRATROPIUM 0.5MG/ALBUTEROL 2.5MG INH SOL UD 3ML (DUONEB) NEB SCH (07:19)
[2019-12-08] MEDS ORDERED: TRAM50TA2 PO (08:31)
[2019-12-08] MEDS ORDERED: XARE10TA PO (08:31)
[2019-12-08] MEDS: DOCUSATE SODIUM 100 MG CAP PO SCH (08:44)
[2019-12-08] MEDS: MIRALAX *UNIT DOSE* 17GM PACKET PO SCH (08:44)
--- NOTE | 2019-12-08 10:00 | CR ---
DATE OF CONSULTATION: 12/05/2019 REASON FOR CONSULTATION: Right intertrochanteric hip fracture. HISTORY OF PRESENT ILLNESS: This 74-year-old female is seen today with Akash, her daughter. She is consulted to me by Dr. Zuniga, the emergency department physician secondary education professor at [facility]. She apparently was found this morning down by her daughter. She has been having a lot of falls lately. She is unable to ambulate complaining about pain on the right side. No obvious head injury, other injuries, or loss of consciousness. PAST MEDICAL HISTORY: 1. Cardiac stent x2 at [facility]. She follows with Dr. Gomez the corporate securities research analyst. 2. Chronic obstructive pulmonary disease (COPD). PAST SURGICAL HISTORY: 1. Hysterectomy. 2. Stent placement. MEDICATIONS: Vitamins. SOCIAL HISTORY: She lives alone. She is here with her daughter, Akash. She is a previous smoker. She uses a walker and cane, and has recently been having a lot of falls. PHYSICAL EXAMINATION: A 74-year-old female. She is laying supine in bed. She looks frail. She is quite hard of hearing. She is here with her daughter, Akash. She has multiple ulcers on her left side. She has large ulcers on the hip, as well as on the knee and lateral side of the left ankle. No obvious ulcers on the right hip. There is bruising and ecchymosis on the medial aspect of the right thigh. Otherwise, closed injury. She is able to wiggle her toes, dorsiflex, and plantarflex the foot. Normal sensation of the foot. Foot is warm and well- perfuse. Good pedal pulses on the dorsalis pedis. IMAGING DATA: Radiographs are reviewed of the right hip, which shows a four- part intertrochanteric hip fracture. LABORATORY DATA: COVID pending. ASSESSMENT AND PLAN: This 74-year-old female has a right hip intertrochanteric hip fracture. I have ordered full length femur views to assess the full length of the bone, as well as COVID test pending. She is pending clearance from Dr. Mcgee the hospitalist on admission. They are pending coagulation studies as well. She needs a wound care consult and offloading for her ulcers as well. She is at high risk of further skin breakdown and wound problems. I recommend open reduction internal fixation with long intramedullary device for her right four- part intertrochanteric hip fracture. The risks of nonsurgical and surgical management were discussed which include, but are not limited to infection, pain, stiffness, bleeding, weakness, damage to surrounding structures, neurovascular injury, delayed mal- or nonunion, anesthetic complications, the need for further surgery, and high risk of wound problems and delayed healing of the fracture. She wished to go ahead. Plan to send for surgery as well as possible need for blood products. We will keep her fasting as there is the possibility that we may perform the case tonight, but more likely tomorrow based on OR availability and medical clearance. HEATHER
[2019-12-08] MEDS ORDERED: IPRA0.00 NEB (11:06)
[2019-12-08 11:54] LABS: VITAMIN B12 LEVEL 883 PG/ML (247-911)
[2019-12-08 11:55] LABS: FOLATE 6.2 NG/ML (>5.4)
--- NOTE | 2019-12-08 14:55 | RO ---
DATE OF OPERATION: 12/05/2019 PREOPERATIVE DIAGNOSIS: Right four-part intertrochanteric hip fracture. POSTOPERATIVE DIAGNOSIS: Right four-part intertrochanteric hip fracture. SURGEON: Montana Cardoso MD ANESTHESIA: Spinal anesthetic. PLANNED PROCEDURE(S): Right hip intramedullary nailing and open reduction internal fixation with Synthes TFN-A. PROCEDURE(S) PERFORMED: Right hip intramedullary nailing and open reduction internal fixation with Synthes TFN-A. OPERATIVE PREAMBLE: This is a 74-year-old female who sustained a fall. She sustained a four-part displaced intertrochanteric hip fracture of the right hip. I discussed with her and her daughter the pros and cons, risks and benefits of going ahead with open reduction internal fixation with intramedullary nail device. She wished to go ahead and was consented for the above surgery. I marked the right lower extremity and proceeded to surgery. DESCRIPTION OF PROCEDURE: The patient was brought to the operating theatre. There she was administered spinal anesthetic. She was administered 2 grams of IV Ancef and 2 grams of IV tranexamic acid. She was placed in traction setup with the right leg in traction, internal rotation, as well as left leg scissoring position, attached to the bed and appropriately padded. Preoperative radiographs AP and lateral were performed to confirm appropriate reduction of the hip. The limb was prepped and draped in the usual sterile fashion with chlorhexidine- based prep solution allowing over 3 minutes for the prep solution to dry prior to draping with a shower curtain style drape. Preoperative timeout was performed confirming the correct patient, site, and surgery. We began by inserting a 3.2 mm partially-threaded guidewire at the tip of the greater trochanter on the AP and lateral radiographs. Advanced this in line with the femoral canal on the lateral radiograph aiming toward the lesser trochanter on AP radiographs. I used the canal opening reamer followed by the ball-tip guidewire with a small bend at the tip, advanced this down to the center on the distal femur on AP and lateral radiographs. I reamed up to a size 12.5 mm. Neck shaft angle appeared to be approximately 130 degrees. Length was about 400 mm and I took 20 mm off, and selected a 380 mm long Synthes TFN-A nail, 11 mm diameter, 130-degree neck shaft angle. This was inserted down distally. I then used the dropdown guide after removing the ball-tip guidewire. I used percutaneous incisions. A used a bone hook laterally, as well as a ball spike pusher anteriorly to reduce a slight valgus deformity at the neck, as well as flexion on the lateral radiograph. I again passed the guidewire using percutaneous technique up to the subchondral bone and AP and lateral radiographs. I tried to have the guidewire positioned slightly inferior and posteriorly. I then reamed to approximately 100 mm and inserted a 100 mm helical blade. Took AP and lateral radiographs to ensure to no subchondral penetration of the helical blade using near-far technique. I then used a compression device and locked the nail proximally. The 3.2 mm guidewire was then removed. Compression appeared appropriate. I then turned my attention distally to use perfect [place] technique and stab incision percutaneous technique to insert two cross blocks at the proximal, as well as the oblique hole. These measured 40 mm in length. They were fully threaded 5.0 mm screws. We achieved good bites both screws. Radiolucent guide was then removed and plantar radiographs were taken proximally and distally. The wounds were thoroughly irrigated. Subcutaneous tissues with interrupted 2-0 Vicryl sutures and skin with alisha.Incision covered with sterile dressing followed by application of Adaptic and occlusive dressings. The patient was transferred off the operating room table and taken to the postanesthetic care unit in stable condition. All sponge, needle, and instrument counts were correct. Estimated blood loss 100 mL. No complications. The patient will be admitted to the hospitalist service. She will receive PT and OT to ensure safety for mobilization upon discharge home. She will receive Ancef 2 grams IV every 8 hours x2 doses postoperatively, as well as Xarelto 10 mg p.o. once daily for 35 days for venous thromboembolism (VTE) prophylaxis starting 24 hours postoperatively. Follow-up will be as an outpatient in two weeks time to trim the the alisha. I have given an update to Ms. Baumann daughter after the case was complete. HEATHER
--- NOTE | 2019-12-08 17:02 | DS.PDOC ---
Discharge Summary General Date of Admission Dec 05, 2019 at 15:07 Date of Discharge 12/08/19 Discharge Summary PROCEDURES PERFORMED DURING STAY: Right hip intramedullary nailing and open reduction internal fixation with Synthes TFN-A. 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 HOSPITAL COURSE: 74 year old female lives alone, hard of hearing PMH of COPD, CAD s/p stenting, hypercholesterolemia with h/o falls as per daughter present in the room supposed to use a walker but does not always use it was found down on the floor this morning so was brought to the ED. As per daughter she knows that she fell 1 month ago and also 1 week ago when she was able to get up by herself. Patient does not always remember about falling and so does not tell family about her falls. She complains of severe sharp pain at the right hip 8/10 in intensity associated to severe muscle spasms on slight movement. She was found to have right proximal femur fracture. Right four-part intertrochanteric hip fracture. s/p ORIF on 12/05/19 PT/OT pain control and dvt prophylaxis as per ortho Rhabdomyolysis resolved Acute Blood loss Anemia blood loss in fracture hematoma, large bruising in the right thigh. possibly also a combination of dilutional and some operative blood loss No vit B12, folate def No iron def. transfused 1 unit COPD not on any treatment at home duonebs prn sob CAD s/p Stents not on any meds Protein calorie malnutrition albumin 2.2 ensure enlive Pressure Ulcers with deep tissue injury on the left hip and left flank/ Pressure left maleolus lat, left shoulder from earlier fall , probably lay down on her left side for a long while before she was able to get up. looks dry and healing at present. Will keep open surgical evaluation appreciated. DISCHARGE MEDICATIONS: Please see below. ALLERGIES: Please see below. PHYSICAL EXAMINATION ON DISCHARGE: VITAL SIGNS: Please see below. General Exam: Positive: Alert, Cooperative, Mild Distress Eye Exam: Positive: PERRLA, Conjunctiva & lids normal, EOMI; Negative: Sclera icteric ENT Exam: Positive: Atraumatic, Mucous membr. moist/pink, Pharynx Normal, Other ENT (bitemporal wasting) Neck Exam: Positive: Supple; Negative: JVD, thyromegaly Chest Exam: Positive: Clear to auscultation, Diminished, Other (barell chest, pursed lip breathing); Negative: Rales, Rhonchi, Wheezing Heart Exam: Positive: Rate Normal, Regular Rhythm, Normal S1, Normal S2; Negative: Murmurs, Rubs Telemetry: Positive: No significant arrhythmia Abdomen Exam: Positive: Normal bowel sounds, Soft; Negative: Tenderness, Hepatosplenomegaly Extremity Exam: Positive: Other (wasting of small muscles of hands); Negative: Clubbing, Cyanosis, Edema Skin Exam: Positive: Breakdown (2 cm x 2 cm ulcer on left lateral maleolus, 6 cm x 4 cm ulcer with slough on the left hip, 5 cm x 5 cm skin ulcer with slough onthe left flank.), Other skin issue (brruising ont he right inner thingh, bruising at trevor sacrum, bruising with superficial ulcer on the left shoulder. ) Neuro Exam: Positive: Normal Speech Psych Exam: Positive: Oriented x 3 LABORATORY DATA: Please see below. ACTIVITY: [As tolerated]. DIET: Regular DISPOSITION: [facility] Keep Home. DISCHARGE INSTRUCTIONS: Follow up with Ortho as directed DISCHARGE CONDITION: [Stable]. TIME SPENT ON DISCHARGE: 35 minutes. Vital Signs/I&Os Vital Signs Date Time Temp Pulse Resp B/P (MAP) Pulse Ox O2 Delivery O2 Flow Rate FiO2 12/08/19 06:00 98.3 86 18 93/54 (67) 90 Nasal Cannula 2.0 I&O- Last 24 Hours up to 6 AM 12/08/19 07:00 Intake Total 2920 ml Output Total 1750 ml Balance 1170 ml Laboratory Data Labs 24H Laboratory Tests 2 12/08/19 05:24: Immature Granulocyte % (Auto) 1.4, Neutrophils (%) (Auto) 74.9H, Lymphocytes (%) (Auto) 13.5L, Monocytes (%) (Auto) 8.3H, Eosinophils (%) (Auto) 1.8, Basophils (%) (Auto) 0.1, Neutrophils # (Auto) 5.3, Lymphocytes # (Auto) 1.0L, Monocytes # (Auto) 0.6, Eosinophils # (Auto) 0.1, Basophils # (Auto) 0.0, Nucleated Red Blood Cells % (auto) 0.0, Anion Gap 3L, Glomerular Filtration Rate > 60.0, Ca lcium Level 8.6L CBC/BMP Laboratory Tests 12/08/19 05:24 Discharge Medications Scheduled Ascorbic Acid (Vitamin C) 250 Mg Tablet, 250 MG PO DAILY, (Reported) Calcium Carbonate (Calcium) 600 Mg Tablet, 600 MG PO DAILY, (Reported) Ipratropium/Albuterol Sulfate (Iprat-Albut 0.5-3(2.5) mg/3 ml) 3 Ml Ampul.neb, 3 ML NEB RTID Lutein (Lutein) 20 Mg Capsule, 20 MG PO DAILY, (Reported) Rivaroxaban (Xarelto) 10 Mg Tablet, 10 MG PO DAILY Scheduled PRN Tramadol HCl (Tramadol HCl) 50 Mg Tablet, 1 TAB PO Q4H PRN for PAIN Allergies Coded Allergies: No Known Allergies (Verified , 01/27/07) RICO DUARTE MD Dec 08, 2019 17:02
== END 2019-12-08 12:05 | DRG 481 ==
LOC: M ED 11:23 → EDBD 11:23 → M ED INP 15:07 → ENRESERV 15:27 → M MS5PR 21:00
PROVIDERS: ADMIT Internal Medicine Nephrology; ATTEND Internal Medicine Nephrology
PROC: 0QS606Z Reposition Right Upper Femur with Intramedullary Internal Fixation Device, Open Approach (ICD-10-PCS; principal; 2019-12-05 16:00)
PROC: 30233N1 Transfusion of Nonautologous Red Blood Cells into Peripheral Vein, Percutaneous Approach (ICD-10-PCS; 2019-12-06)
DX: S72.141A Displaced intertrochanteric fracture of right femur, initial encounter for closed fracture (principal); M62.82 Rhabdomyolysis; E46 Unspecified protein-calorie malnutrition; D62 Acute posthemorrhagic anemia; W19.XXXA Unspecified fall, initial encounter; Y92.009 Unspecified place in unspecified non-institutional (private) residence as the place of occurrence of the external cause; L89.226 Pressure-induced deep tissue damage of left hip; R29.6 Repeated falls; H91.93 Unspecified hearing loss, bilateral; I25.10 Atherosclerotic heart disease of native coronary artery without angina pectoris; L89.899 Pressure ulcer of other site, unspecified stage; J44.9 Chronic obstructive pulmonary disease, unspecified; E78.00 Pure hypercholesterolemia, unspecified; F17.211 Nicotine dependence, cigarettes, in remission; B35.1 Tinea unguium; Z79.899 Other long term (current) drug therapy; Z95.5 Presence of coronary angioplasty implant and graft

== ENCOUNTER → 2019-12-11 | Outpatient (REF) ==
[2019-12-11 09:22] LABS: HEMATOCRIT 29.5 % (36.0-47.0); MEAN CORPUSCULAR HEMOGLOBIN 27.3 pg (27.0-33.0); MEAN CORPUSCULAR HGB CONC 30.5 g/dl (32.0-36.5); MEAN CORPUSCULAR VOLUME 89.4 fl (80.0-96.0); PLATELET COUNT, AUTOMATED 200 10^3/uL (150-450); WHITE BLOOD COUNT 8.8 10^3/uL (4.0-10.0)
== END ==
LOC: SKLAB5 07:26
PROVIDERS: ATTEND Internal Medicine
DX: D64.9 Anemia, unspecified (principal); M81.0 Age-related osteoporosis without current pathological fracture

== ENCOUNTER → 2019-12-16 | Outpatient (REF) ==
--- NOTE | 2019-12-16 15:43 | REP ---
INDICATION: COPD. COMPARISON: Comparison chest x-ray December 05, 2019 October 03, 2012 prior study is also reviewed... TECHNIQUE: Upright AP view. FINDINGS: Moderate cardiac enlargement is again observed unchanged. The thoracic aorta is calcific and tortuous. There is diffuse osteopenia. There is no evidence of pleural effusion. There is a linear opacity in the parenchyma of the lung in the left parahilar region compatible with platelike atelectasis. This was not observed previously. There was thin linear fibrosis in this location on the October 03, 2012 prior study. No other abnormal parenchymal opacity is seen. IMPRESSION: Platelike atelectasis left upper perihilar region. Cardiomegaly again observed. Otherwise no acute disease. <Electronically signed by Lorenzo Gay > 12/16/19 [id number]
== END ==
LOC: SKLAB5 12:39
PROVIDERS: ATTEND Internal Medicine
DX: J98.11 Atelectasis (principal); I51.7 Cardiomegaly; M85.9 Disorder of bone density and structure, unspecified

== ENCOUNTER → 2019-12-18 | Outpatient (REF) ==
[2019-12-18 07:44] LABS: HEMATOCRIT 25.4 % (36.0-47.0); HEMOGLOBIN 7.7 g/dl (12.0-15.5); MEAN CORPUSCULAR HEMOGLOBIN 27.6 pg (27.0-33.0); MEAN CORPUSCULAR HGB CONC 30.3 g/dl (32.0-36.5); PLATELET COUNT, AUTOMATED 276 10^3/uL (150-450); RED BLOOD COUNT 2.79 10^6/uL (4.00-5.40); WHITE BLOOD COUNT 9.4 10^3/uL (4.0-10.0)
== END ==
LOC: SKLAB5 08:04
PROVIDERS: ATTEND Internal Medicine
DX: D64.9 Anemia, unspecified (principal); L08.9 Local infection of the skin and subcutaneous tissue, unspecified

== ENCOUNTER → 2019-12-22 | Outpatient (REF) ==
[2019-12-22 12:44] LABS: HEMATOCRIT 27.2 % (36.0-47.0); HEMOGLOBIN 8.1 g/dl (12.0-15.5); MEAN CORPUSCULAR HEMOGLOBIN 27.1 pg (27.0-33.0); MEAN CORPUSCULAR HGB CONC 29.8 g/dl (32.0-36.5); PLATELET COUNT, AUTOMATED 253 10^3/uL (150-450); RED BLOOD COUNT 2.99 10^6/uL (4.00-5.40); WHITE BLOOD COUNT 7.3 10^3/uL (4.0-10.0)
[2019-12-22 13:10] LABS: ALBUMIN 2.1 GM/DL (3.2-5.2); ALT/SGPT 29 U/L (12-78); BILIRUBIN,TOTAL 0.5 MG/DL (0.2-1.0); BLOOD UREA NITROGEN 20 MG/DL (7-18); CALCIUM LEVEL 9.4 MG/DL (8.8-10.2); CARBON DIOXIDE LEVEL 30 MEQ/L (21-32); CHLORIDE LEVEL 105 MEQ/L (98-107); CREATININE FOR GFR 0.45 MG/DL (0.55-1.30); GLOMERULAR FILTRATION RATE > 60.0 (>39); GLUCOSE, FASTING 96 MG/DL (70-100); POTASSIUM SERUM 3.9 MEQ/L (3.5-5.1); SODIUM LEVEL 139 MEQ/L (136-145); TOTAL PROTEIN 5.4 GM/DL (6.4-8.2)
== END ==
LOC: SKLAB5 11:55
PROVIDERS: ATTEND Internal Medicine
DX: D64.9 Anemia, unspecified (principal); R53.83 Other fatigue

== ENCOUNTER → 2019-12-23 | Outpatient (REF) ==
[2019-12-23 09:05] LABS: HEMATOCRIT 26.6 % (36.0-47.0); MEAN CORPUSCULAR HEMOGLOBIN 27.5 pg (27.0-33.0); MEAN CORPUSCULAR HGB CONC 30.1 g/dl (32.0-36.5); MEAN CORPUSCULAR VOLUME 91.4 fl (80.0-96.0); PLATELET COUNT, AUTOMATED 239 10^3/uL (150-450); RED BLOOD COUNT 2.91 10^6/uL (4.00-5.40); WHITE BLOOD COUNT 8.4 10^3/uL (4.0-10.0)
[2019-12-23 09:29] LABS: FERRITIN 476 NG/ML (8-252); IRON (FE) 20 UG/DL (50-170)
== END ==
LOC: SKLAB5 08:44
PROVIDERS: ATTEND Internal Medicine
DX: D64.9 Anemia, unspecified (principal)

== ENCOUNTER → 2019-12-25 | Outpatient (REF) ==
[2019-12-25 09:11] LABS: HEMATOCRIT 26.9 % (36.0-47.0); HEMOGLOBIN 8.1 g/dl (12.0-15.5); MEAN CORPUSCULAR HGB CONC 30.1 g/dl (32.0-36.5); MEAN CORPUSCULAR VOLUME 89.7 fl (80.0-96.0); PLATELET COUNT, AUTOMATED 253 10^3/uL (150-450); WHITE BLOOD COUNT 5.5 10^3/uL (4.0-10.0)
== END ==
LOC: SKLAB5 08:29
PROVIDERS: ATTEND Internal Medicine
DX: D64.9 Anemia, unspecified (principal)